=== PATIENT | female | born 1980 | race Caucasian/White ===

== ENCOUNTER 2016-08-20 12:43 | Emergency (ER) ==
--- NOTE | 2016-08-20 13:17 | EKG Report ---
Test Performed on : 08/20/2016 1:01:58 PM Test Reason : CHEST PAIN Blood Pressure : / mmHG Vent. Rate : 093 BPM Atrial Rate : 093 BPM P-R Int : 140 ms QRS Dur : 076 ms QT Int : 370 ms P-R-T Axes : 073 080 068 degrees QTc Int : 460 ms Normal sinus rhythm. Possible Left atrial enlargement Borderline ECG When compared with ECG of 24-OCT-2015 08:47, No significant change was found Unconfirmed Result
[2016-08-20 13:32] LABS: INR 0.89 (0.86-1.15); PROTIME 12.4 Seconds (12.1-15.5)
[2016-08-20 13:33] LABS: PTT PL 28.5 Seconds (22.6-43.9)
[2016-08-20 13:38] LABS: AGAP 18; ALBUMIN 4.7 g/dL (3.5-5.0); ALKALINE PHOSPHATASE 56 U/L (32-104); BUN 15 mg/dL (8-22); CALCIUM 9.3 mg/dL (8.8-10.2); CHLORIDE 95 mmol/L (98-107); CK PROFILE 74 U/L (24-173); COSMO 268; GOT 16 U/L (10-30); GPT 17 U/L (10-36); MAGNESIUM 1.8 mg/dL (1.5-2.7); POTASSIUM 3.1 mmol/L (3.5-5.1); SODIUM 133 mmol/L (136-145); TCO2 20 mmol/L (25-35); TOTAL PROTEIN 7.5 g/dL (6.3-8.3)
[2016-08-20] MEDS ORDERED: NS 1,000 ML IV ONE (13:39)
[2016-08-20] MEDS ORDERED: ATIVAN IV ONE (13:39)
[2016-08-20 13:40] LABS: BASO% 0.4 % (0.0-0.8); EOS# 0.08 X1000 (0.0-0.7); HEMATOCRIT 41.4 % (37.0-47.0); HEMOGLOBIN 15.2 g/dL (12.0-16.0); IMM GRAN# 0.01 X1000 (0.0-0.04); IMM GRAN% 0.1 % (0.0-0.5); LYMPH# 2.54 X1000 (1.2-3.4); LYMPH% 30.8 % (20.5-51.1); MANUAL DIFF NEEDED? NO; MCH 31.5 PG (27-31); MCHC 36.7 g/dL (33-37); MCV 85.9 FL (81-99); MONO% 6.1 % (1.7-9.3); MPV 9.2 FL (7.4-10.4); NEUT% 61.6 % (42.2-75.2); PLT 269 X1000 (130-400); RBC 4.82 XMIL (4.2-5.4)
--- NOTE | 2016-08-20 13:43 | PROVIDER DOCUMENTATION ---
HPI-Chest Pain - General Chief Complaint: Shortness of Breath Stated Complaint: SOB Time Seen by Provider: 08/20/16 13:11 Source: patient Allergies/Adverse Reactions: Patient Allergies Allergy/AdvReac Type Severity Reaction Status Date / Time amoxicillin AdvReac RASH Verified 10/24/15 08:46 Home Medications: Home Medication List Medication Instructions Recorded Confirmed Last Taken Type Amlodipine Besylate [Norvasc] 10 mg PO DAILY #30 tablet 10/24/15 Unknown Rx - History of Present Illness-CP Nature of Presenting Problem: patient is a 36 y/o F that presents with shortness of breath, chest tightness, dizziness, and hands trembling x 2 days. denies fever/chills, cough, or leg swelling. history of similar symptoms last year. denies any cardiac history. Location: reports: central Quality of Pain: reports: tightness Severity in ED: mild Onset/Duration: gradual, 2 days ago Timing: still present, constant Context/Activities at Onset: reports: none Modifying Factors: improves with: nothing Associated Symptoms: reports: dizziness, shortness of breath. denies: abdominal pain, back pain, diaphoresis, edema, fatigue, fever/chills, nausea, swelling/lump in chest, vomiting Nitro Today/Relief: no nitro taken today Aspirin Treatment Today: no aspirin today Prior Chest Pain/Cardiac Workup: reports: non-cardiac Similar Symptoms Previously?: Yes Recently Seen Here or By Another Healthcare Provider: No Review of Systems - Adult - REVIEW OF SYSTEMS - ADULT Constitutional: denies: chills, fever Eyes: denies: decreased vision, blurred vision, double vision Ears, Nose, Mouth & Throat: denies: ear discharge, ear pain, sinus problem, throat pain, throat swelling Cardiovascular: reports: chest pain. denies: edema, palpitations, syncope Respiratory: reports: shortness of breath. denies: cough, dyspnea on exertion, pleurisy, wheezing Gastrointestinal: denies: abdominal pain, diarrhea, nausea, vomiting Genitourinary: reports: no symptoms reported Musculoskeletal: reports: no symptoms reported Integumentary: reports: no symptoms reported Neurological: reports: dizziness/vertigo. denies: headache/migraines, numbness , paresthesia, syncope Psychiatric: reports: no symptoms reported Endocrine: reports: no symptoms reported Hematologic/Lymphatic: reports: no symptoms reported Allergic/Immunologic: reports: no symptoms reported All Other Systems: Reviewed and Negative Past History - Adult - PAST MEDICAL HISTORY-ADULT Review of Records: reports: Old Records Reviewed, Nursing Assessment Review, Medications Reviewed - PRIOR SURGERIES/PROCEDURES Surgical/Procedure History: reports: hysterectomy, other (hysterectomy) - IMMUNIZATION STATUS Childhood Immunizations: See Nurse Assessment Flu Vaccine: See Nurse Assessment - FAMILY HISTORY Family History: reviewed, not pertinent - SOCIAL HISTORY Smoking: cigarettes, less than 1 pack/day Living Situation: family Physical Exam-General - PHYSICAL EXAM-ADULT Initial Vital Signs Reviewed: Yes - CONSTITUTIONAL General Appearance: alert, no apparent distress, anxious - EYES Eyes: PERRL/EOMI, pink conjunctivae - HEAD, EARS, NOSE, MOUTH & THROAT HENMT: normocephalic/atraumatic, moist mucous membranes, normal ENT inspection - NECK Neck: full range of motion, normal inspection - RESPIRATORY Respiratory: lungs clear, normal breath sounds, no respiratory distress, no accessory muscle use - CARDIOVASCULAR Cardiovascular: no edema, no murmur, tachycardia - GASTROINTESTINAL (ABDOMEN) Abdominal Exam: normal bowel sounds, non tender, soft, no organomegaly, no pulsatile mass - MUSCULOSKELETAL Back Exam: normal inspection, no vertebral tenderness Extremity: normal range of motion, non-tender, normal inspection, no pedal edema , no calf tenderness, normal capillary refill, pelvis stable - SKIN Integumentary: normal color, warm/dry - NEUROLOGIC Neurologic: grossly normal, no motor/sensory deficits - PSYCHIATRIC Psych/Mental Status: normal thought content, normal thought process, oriented x 3, anxious Progress - PLAN OF CARE/RESULTS Progress/Plan/Lab Results: plan of care-labs, cxr, meds, ekg 1505-second set of cardiacs ordered Vital Signs Temp Pulse Resp BP Pulse Ox 08/20/16 14:48 80 22 111/79 98 08/20/16 14:19 85 16 102/73 97 08/20/16 13:49 84 18 109/75 98 08/20/16 12:52 97.8 F 113 H 22 121/79 100 amoxicillin Adverse Reaction (Verified 10/24/15 08:46) RASH Amlodipine Besylate [Norvasc] 10 mg PO DAILY #30 tablet 10/24/15 Laboratory 08/20/16 08/20/16 08/20/16 15:49 15:49 15:49 WBC RBC Hgb Hct MCV MCH MCHC RDW Std Deviation Plt Count MPV Immature Gran % (Auto) Neut % (Auto) Lymph % (Auto) [place] % (Auto) Eos % (Auto) Baso % (Auto) Immature Gran # (Auto) Neut # (Auto) Lymph # (Auto) [place] # (Auto) Eos # (Auto) Baso # (Auto) PT INR APTT (Factor Assay) D-Dimer Sodium Potassium Chloride Carbon Dioxide Anion Gap BUN Creatinine Estimated GFR/1.73 m2 BUN/Creatinine Ratio Glucose Calculated Osmolality Calcium Magnesium Total Bilirubin AST ALT Alkaline Phosphatase Creatine Kinase Troponin T Vic-L-Hneraajhwab Pept Total Protein Albumin Globulin Albumin/Globulin Ratio Urine Source CLEAN CATCH Urine Color YELLOW Urine Clarity CLEAR Urine pH 7.0 Ur Specific [place] 1.015 Urine Protein NEGATIVE Urine Ketones NEGATIVE Urine Blood NEGATIVE Urine Nitrite NEGATIVE Urine Bilirubin NEGATIVE Urine Urobilinogen NORMAL Urine Microscopic RBC Not Reportable Urine WBC NEGATIVE Ur Epithelial Cells <10 Urine Glucose NEGATIVE Urine Test NEGATIVE Urine Opiates Screen NONE DETECTED Ur Oxycodone Screen NONE DETECTED Urine Methadone Screen NONE DETECTED Ur Barbituates Screen NONE DETECTED Ur Tricyclics Screen NONE DETECTED Ur Phencyclidine Scrn NONE DETECTED Ur Amphetamines Screen NONE DETECTED U Methamphetamines Scrn NONE DETECTED Urine MDMA Screen NONE DETECTED U Benzodiazepines Scrn NONE DETECTED Urine Cocaine Screen NONE DETECTED U Cannabinoids Screen NONE DETECTED 08/20/16 08/20/16 08/20/16 14:52 14:52 13:15 WBC RBC Hgb Hct MCV MCH MCHC RDW Std Deviation Plt Count MPV Immature Gran % (Auto) Neut % (Auto) Lymph % (Auto) [place] % (Auto) Eos % (Auto) Baso % (Auto) Immature Gran # (Auto) Neut # (Auto) Lymph # (Auto) [place] # (Auto) Eos # (Auto) Baso # (Auto) PT 12.4 INR 0.89 APTT (Factor Assay) 28.5 D-Dimer < 0.22 L Sodium Potassium Chloride Carbon Dioxide Anion Gap BUN Creatinine Estimated GFR/1.73 m2 BUN/Creatinine Ratio Glucose Calculated Osmolality Calcium Magnesium Total Bilirubin AST ALT Alkaline Phosphatase Creatine Kinase 71 Troponin T < 0.010 [id number]-P-Pijyofzwyzq Pept Total Protein Albumin Globulin Albumin/Globulin Ratio Urine Source Urine Color Urine Clarity Urine pH Ur Specific [place] Urine Protein Urine Ketones Urine Blood Urine Nitrite Urine Bilirubin Urine Urobilinogen Urine Microscopic RBC Urine WBC Ur Epithelial Cells Urine Glucose Urine Test Urine Opiates Screen Ur Oxycodone Screen Urine Methadone Screen Ur Barbituates Screen Ur Tricyclics Screen Ur Phencyclidine Scrn Ur Amphetamines Screen U Methamphetamines Scrn Urine MDMA Screen U Benzodiazepines Scrn Urine Cocaine Screen U Cannabinoids Screen 08/20/16 08/20/16 08/20/16 13:15 13:15 13:15 WBC 8.26 RBC 4.82 Hgb 15.2 Hct 41.4 MCV 85.9 MCH 31.5 H MCHC 36.7 RDW Std Deviation 12.7 Plt Count 269 MPV 9.2 Immature Gran % (Auto) 0.1 Neut % (Auto) 61.6 Lymph % (Auto) 30.8 [place] % (Auto) 6.1 Eos % (Auto) 1.0 Baso % (Auto) 0.4 Immature Gran # (Auto) 0.01 Neut # (Auto) 5.10 Lymph # (Auto) 2.54 [place] # (Auto) 0.50 Eos # (Auto) 0.08 Baso # (Auto) 0.03 PT INR APTT (Factor Assay) D-Dimer Sodium Potassium Chloride Carbon Dioxide Anion Gap BUN Creatinine Estimated GFR/1.73 m2 BUN/Creatinine Ratio Glucose Calculated Osmolality Calcium Magnesium Total Bilirubin AST ALT Alkaline Phosphatase Creatine Kinase Troponin T < 0.010 Iqn-E-Kqotwbusser Pept 24 Total Protein Albumin Globulin Albumin/Globulin Ratio Urine Source Urine Color Urine Clarity Urine pH Ur Specific [place] Urine Protein Urine Ketones Urine Blood Urine Nitrite Urine Bilirubin Urine Urobilinogen Urine Microscopic RBC Urine WBC Ur Epithelial Cells Urine Glucose Urine Test Urine Opiates Screen Ur Oxycodone Screen Urine Methadone Screen Ur Barbituates Screen Ur Tricyclics Screen Ur Phencyclidine Scrn Ur Amphetamines Screen U Methamphetamines Scrn Urine MDMA Screen U Benzodiazepines Scrn Urine Cocaine Screen U Cannabinoids Screen 08/20/16 13:15 WBC RBC Hgb Hct MCV MCH MCHC RDW Std Deviation Plt Count MPV Immature Gran % (Auto) Neut % (Auto) Lymph % (Auto) [place] % (Auto) Eos % (Auto) Baso % (Auto) Immature Gran # (Auto) Neut # (Auto) Lymph # (Auto) [place] # (Auto) Eos # (Auto) Baso # (Auto) PT INR APTT (Factor Assay) D-Dimer Sodium 133 L Potassium 3.1 L Chloride 95 L Carbon Dioxide 20 L Anion Gap 18 BUN 15 Creatinine 0.8 Estimated GFR/1.73 m2 > 60 BUN/Creatinine Ratio 19 Glucose 109 H Calculated Osmolality 268 Calcium 9.3 Magnesium 1.8 Total Bilirubin 0.90 AST 16 ALT 17 Alkaline Phosphatase 56 Creatine Kinase 74 Troponin T Qoe-F-Fxsybgytwmn Pept Total Protein 7.5 Albumin 4.7 Globulin 3.0 Albumin/Globulin Ratio 2.0 Urine Source Urine Color Urine Clarity Urine pH Ur Specific [place] Urine Protein Urine Ketones Urine Blood Urine Nitrite Urine Bilirubin Urine Urobilinogen Urine Microscopic RBC Urine WBC Ur Epithelial Cells Urine Glucose Urine Test Urine Opiates Screen Ur Oxycodone Screen Urine Methadone Screen Ur Barbituates Screen Ur Tricyclics Screen Ur Phencyclidine Scrn Ur Amphetamines Screen U Methamphetamines Scrn Urine MDMA Screen U Benzodiazepines Scrn Urine Cocaine Screen U Cannabinoids Screen Orders Category Date Time Status Cardiac Monitoring DIRECTED Care 08/20/16 12:55 Active Oxygen Therapy- ED Nursing DIRECTED Care 08/20/16 12:55 Active Saline Loc NOW Care 08/20/16 12:55 Active CHEST-2 VIEWS [RAD] Stat Exams 08/20/16 12:55 Completed CBC WITH ELECTRONIC DIFF [HEME] Stat Lab 08/20/16 13:15 Completed CK PROFILE [SP CHEM] Stat Lab 08/20/16 13:15 Completed CK PROFILE [SP CHEM] Stat Lab 08/20/16 14:52 Completed COMPREHENSIVE METABOLIC PANEL [CHEM] Stat Lab 08/20/16 13:15 Com[address] D-DIMER PL [COAG] Stat Lab 08/20/16 13:15 Completed MAGNESIUM [CHEM] Stat Lab 08/20/16 13:15 Completed TEST-URINE [PREG] Stat Lab 08/20/16 15:49 Completed PRO B-NATRIURETIC PEPTIDE Stat Lab 08/20/16 13:15 Completed [address]IME WITH INR PL [COAG] Stat Lab 08/20/16 13:[address] [COAG] Stat Lab 08/20/16 13:15 Completed TROPONIN T Stat Lab 08/20/16 13:15 Completed TROPONIN T Stat Lab 08/20/16 14:[address] W/POSS RFLX CULT [URINALYSIS] Stat Lab 08/20/16 15:49 Completed URINE DRUG SCREEN PL Stat Lab 08/20/16 15:49 Completed 0.9% Sodium Chloride Inj [Ns] 1,000 ml Med 08/20/16 13:39 Discontinued IV 999 mls/hr Lorazepam [Ativan] Med 08/20/16 13:39 Discontinued 1 mg IV NOW ONE Potassium Chloride E.r. [Klor-Con] Med 08/20/16 14:18 Discontinued 40 meq PO NOW ONE EKG [EKG] Stat Ther 08/20/16 12:55 Draft pt will be d/c home with rx, f/u with pcp, pt was clinically stable, understood instructions and results - REASSESSMENT Reassessment #1 Time Reassessed: 15:15 Status: improving Reassessment Comment: after ativan feels better - EKG 1 Time of EKG reading by physician:: 13:01 EKG Read and Signed by:: Mario Leon EKG Interpretation (*Must complete 3 of following elements*): Normal Rate: 93 Rhythm: nSR [place]: normal QRS: normal [place] Interval: normal ST Wave: normal - XRAY 1 XRAY Study: Chest Impression: Normal XRAY Interpretation: nad Departure - Departure Time of Disposition Order: 16:13 DIAGNOSIS: Hypokalemia, Anxiety, Nonspecific chest pain Disposition: HOME 01 Certified Medical Emergency: Emergent Condition: Stable Additional Instructions: ED Follow Up Instructions: You have been treated by a care provider in the Emergency Department. These instructions are being provided to you so you can have an understanding of how to care for yourself upon discharge. Upon discharge from the Emergency Department, you are responsible for making arrangements for follow-up care by a physician of your choice. Take all prescribed medications as directed. Return to the Emergency Department immediately for any new or worsening symptoms. You may call the Physician Referral phone number at [phone] to obtain a list of Physicians who are taking new patients. Referrals: Isidoro Maxwell [Primary Care Provider] - Call for Appoint. 1-2days Instructions: Panic Attacks, Hypokalemia Attestation - Scribe Verification/Attestation Scribe:: Vamshi Nova Acting as Scribe for:: Mario Leon Scribe documention review:: This chart was documented by a scribe and accurately reflects the service the provider performed and the decisions made by the provider. Physician Attestation - Physician Attestation I, the provider, attest to the following statement:: Mario Leon Physician documentation Attestation:: This documentation recorded by the scribe accurately reflects the service I personally performed and the decisions made by me.
--- NOTE | 2016-08-20 14:14 | Diag Imaging Result Document ---
PROCEDURE NAME: CHEST-2 VIEWS - 08/20/2016 CHEST X-RAY, 2 VIEWS: COMPARISON: 10/24/2015. FINDINGS: The lungs are normally expanded and clear. Heart size and mediastinal contours are normal. No pneumothorax or pleural effusion. IMPRESSION: Negative exam.
[2016-08-20] MEDS ORDERED: KLOR-CON PO ONE (14:18)
[2016-08-20 15:54] LABS: URINE CULTURE PL NEEDED? NO; URINE SOURCE CLEAN CATCH
[2016-08-20 16:02] LABS: UR AMPHETAMINES QUAL NONE DETECTED (NONE DETECT); UR BARBITUATES QUAL NONE DETECTED (NONE DETECT); UR BENZODIAZEPIN QUAL NONE DETECTED (NONE DETECT); UR CANNABINOIDS QUAL NONE DETECTED (NONE DETECT); UR COCAINE QUAL NONE DETECTED (NONE DETECT); UR MDMA QUAL NONE DETECTED (NONE DETECT); UR METHADONE QUAL NONE DETECTED (NONE DETECT); UR METHAMPHETAMINE QUAL NONE DETECTED (NONE DETECT); UR OPIATES QUAL NONE DETECTED (NONE DETECT); UR OXYCODONE QUAL NONE DETECTED (NONE DETECT); UR PCP QUAL NONE DETECTED (NONE DETECT); UR TCA QUAL NONE DETECTED (NONE DETECT)
[2016-08-20 16:03] LABS: BILIRUBIN URINE NEGATIVE (NEGATIVE); BLOOD URINE NEGATIVE (NEGATIVE); CLARITY CLEAR (CLEAR); COLOR YELLOW; GLUCOSE URINE NEGATIVE (NEGATIVE); LEUKOCYTES URINE NEGATIVE (NEGATIVE); NITRITE URINE NEGATIVE (NEGATIVE); PROTEIN URINE NEGATIVE (NEGATIVE); SP GRAVITY URINE 1.015; UROBILINOGEN URINE NORMAL
[2016-08-20 16:05] LABS: URINE EPITHELIAL CELLS <10 /HPF (<10)
[2016-08-20 16:28] VITALS: BP 122/87
== END 2016-08-20 17:07 | disposition home or self-care (01) ==
LOC: P.ED 12:43
DX: R07.9 Chest pain, unspecified (principal); E87.6 Hypokalemia; F41.9 Anxiety disorder, unspecified; R06.02 Shortness of breath; R07.89 Other chest pain; R42 Dizziness and giddiness; R25.1 Tremor, unspecified; R00.0 Tachycardia, unspecified; F17.210 Nicotine dependence, cigarettes, uncomplicated; Z79.899 Other long term (current) drug therapy
CPT/HCPCS: 71020; 80053; 80305; 81001; 81025; 82550; 83735; 83880; 84484; 85025; 85379; 85610; 85730; 93005; 96361; 96374; J2060; J7030